=== PATIENT | female | born 1995 | race African-American/Black ===

== ENCOUNTER 2016-12-10 17:38 | Emergency (ER) | payer SELFPAY ==
[~2016-12-10 17:38] MED LIST: AMOXICILLIN875 MG PO
[2016-12-10] MEDS ORDERED: NO MEDICATIONS (17:48)
== END 2016-12-10 19:21 | disposition home or self-care (01) ==
LOC: SED 17:38
DX: K11.5 Sialolithiasis (principal)
CPT/HCPCS: 99283

== ENCOUNTER 2016-12-29 06:35 | Emergency (ER) | payer SELFPAY ==
[~2016-12-29] VITALS: Ht 157.5 cm; Wt 63.5 kg
[~2016-12-29 06:35] MED LIST changes: +NO MEDICATIONS
[2016-12-29 09:01] LABS: URINE SOURCE CLEAN CATCH
[2016-12-29 09:04] LABS: URINE APPEARANCE CLEAR; URINE BILIRUBIN NEG (NEG); URINE BLOOD NEG (NEG); URINE COLOR YELLOW; URINE GLUCOSE NEG (NORM); URINE KETONE 1+ (NEG); URINE LEUKOCYTE ESTERASE NEG (NEG); URINE NITRATE NEG (NEG); URINE PROTEIN 1+ (NEG); URINE SPECIFIC GRAVITY 1.015 (1.003-1.035); URINE UROBILINOGEN 0.2 MG/DL (NORM)
[2016-12-29 09:07] LABS: MICRO INDICATED? YES
[2016-12-29 09:11] LABS: CULTURE INDICATED? YES; URINE BACTERIA 1+ (NEG); URINE HYALINE CAST 0-2 /[HPF]; URINE MUCUS PRESENT; URINE RBC 0-2 /[HPF] (0-2); URINE SQUAMOUS EPITHELIAL CELL MODERATE /[HPF]; URINE WBC 0-2 /[HPF] (0-5)
== END 2016-12-29 09:52 | disposition home or self-care (01) ==
LOC: SED 06:35
PROVIDERS: Emergency Medicine
DX: K29.00 Acute gastritis without bleeding (principal)
CPT/HCPCS: 36415; 81003; 84703; 87086; 96361; 96374; 96375; 99284; J2405